=== PATIENT | female | born 1940 ===

== ENCOUNTER → 2016-11-05 | Outpatient (CLI) | payer OTHER | END | disposition home or self-care (01) | LOC: PCVCCLINIC 14:59 | PROVIDERS: ATTEND Internal Medicine | DX: I21.3 ST elevation (STEMI) myocardial infarction of unspecified site (principal); E78.5 Hyperlipidemia, unspecified; D68.59 Other primary thrombophilia; K21.9 Gastro-esophageal reflux disease without esophagitis; E03.9 Hypothyroidism, unspecified; Z79.82 Long term (current) use of aspirin; Z90.710 Acquired absence of both cervix and uterus; Z96.651 Presence of right artificial knee joint; Z87.891 Personal history of nicotine dependence; Z79.899 Other long term (current) drug therapy; Z86.711 Personal history of pulmonary embolism | CPT/HCPCS: 80061; 93005; G0463 ==

== ENCOUNTER → 2017-11-28 | Outpatient (CLI) | payer OTHER | END | disposition home or self-care (01) | LOC: PCVCCLINIC 14:50 | PROVIDERS: ATTEND Internal Medicine | DX: I24.0 Acute coronary thrombosis not resulting in myocardial infarction (principal); E78.5 Hyperlipidemia, unspecified; D68.52 Prothrombin gene mutation; F10.10 Alcohol abuse, uncomplicated; Z86.711 Personal history of pulmonary embolism; Z87.891 Personal history of nicotine dependence; Z79.899 Other long term (current) drug therapy; Z79.82 Long term (current) use of aspirin | CPT/HCPCS: 80061; 93005; G0463 ==

== ENCOUNTER → 2018-11-30 | Outpatient (CLI) | payer OTHER ==
--- NOTE | 2018-11-30 10:32 | PCVCIMAG ---
APPROVED REPORT Study performed: 11/30/2018 09:34:34 EXAM: Comprehensive 2D, Doppler, and color-flow Echocardiogram Patient Location: Echo lab Status: routine BSA: 1.83 HR: 70 bpmBP: 132/84 mmHg Rhythm: NSR Other Information Study Quality: Adequate Indications History of pulmonary embolism and LAD clot 2D Dimensions IVSd: 11.39 (7-11mm) LVDd: 36.61 mm PWd: 10.28 (7-11mm) LVDs: 25.70 (25-40mm) Left Atrium: 39.15 (27-40mm) Aortic Root: 26.91 mm LV Single Plane 4CH: 62.34 % LV Single Plane 2CH: 62.05 % Biplane EF: 62.5 % Volumes Left Atrial Volume (Systole) Single Plane 4CH: 73.44 mLSingle Plane 2CH: 71.69 mL LA ESV Index: 40.00 mL/m2 Aortic Valve AoV Peak Eric.: 1.30 m/s AO Peak Gr.: 6.71 mmHgLVOT Max P.85 mmHg LVOT Max V: 0.98 m/s Mitral Valve E/A Ratio: 1.3 MV Decel. Time: 265.68 ms MV E Max Eric.: 0.76 m/s MV A Eric.: 0.60 m/s IVRT: 110.73 ms Pulmonary Valve PV Peak Eric.: 0.97 m/sPV Peak Gr.: 3.78 mmHg Pulmonary Vein P Vein S: 0.26 m/sP Vein A: 0.29 m/s P Vein D: 0.34 m/sP Vein A Dur.: 141.9 msec P Vein S/D Ratio: 0.76 Tricuspid Valve TR Peak Eric.: 2.96 m/s TR Peak Gr.: 34.96 mmHg Left Ventricle The left ventricle is normal size. There is normal LV segmental wall motion. There is normal left ventricular wall thickness. Left ventricular systolic function is normal. The left ventricular ejection fraction is within the normal range. LVEF is 60-65%. Moderate diastolic dysfunction is present (pseudonormal filling). Right Ventricle The right ventricle is normal size. The right ventricular systolic function is normal. Atria Left atrium is mildly dilated. The right atrium size is normal. Aortic Valve The aortic valve is normal in structure. No aortic regurgitation is present. There is no aortic valvular stenosis. Mitral Valve The mitral valve is normal in structure. Mild mitral regurgitation. No evidence of mitral valve stenosis. Mild anterior leaflet prolapse. Tricuspid Valve The tricuspid valve is normal in structure. Mild-moderate tricuspid regurgitation with PAP of 40 mmHg. Pulmonic Valve The pulmonary valve is normal in structure. Mild pulmonic regurgitation. Great Vessels The aortic root is normal in size. IVC is normal in size and collapses >50% with inspiration. Pericardium There is no pericardial effusion. There is no pleural effusion. <Conclusion> Left ventricular systolic function is normal. The left ventricular ejection fraction is within the normal range. There is normal LV segmental wall motion. LVEF is 60-65%. Moderate diastolic dysfunction The aortic valve is normal in structure. No aortic regurgitation or stenosis The mitral valve is normal in structure. Mild mitral regurgitation. Mild-moderate tricuspid regurgitation with pulmonary artery pressure of 40 mmHg. There is no pericardial effusion.
== END | disposition home or self-care (01) ==
LOC: PCVCIMAG 09:59
PROVIDERS: ATTEND Internal Medicine
DX: I08.1 Rheumatic disorders of both mitral and tricuspid valves (principal); I24.0 Acute coronary thrombosis not resulting in myocardial infarction; E78.5 Hyperlipidemia, unspecified; D68.52 Prothrombin gene mutation; K21.9 Gastro-esophageal reflux disease without esophagitis; E03.9 Hypothyroidism, unspecified; Z86.711 Personal history of pulmonary embolism; Z87.891 Personal history of nicotine dependence; Z79.82 Long term (current) use of aspirin
CPT/HCPCS: 93306